=== PATIENT | male | born 1965 | race Two or more races ===

== ENCOUNTER → 2018-07-03 | Emergency (ER) | payer OTHER ==
[~2018-07-03] VITALS: Ht 180.3 cm; Wt 63.5 kg
[~2018-07-03] MED LIST: COUMADIN1 MG; GLIMEPIRIDE1 MG; GLIMEPIRIDE1 MG PO; HYZAAR 100-251 UDTAB; LOSARTAN-HCTZ1 EAC1 PO; METFORMIN HCL1000 M1; NORVASC10 MG; TOPROL XL25 MG
== END | disposition home or self-care (01) ==
LOC: ER 23:36
DX: R51 Headache (principal)